=== PATIENT | female | born 1985 | race Two or more races ===

== ENCOUNTER → 2021-10-14 08:48 | Outpatient (REF) | payer MEDICAID, SELFPAY | LOC: HO.SL 08:48 | PROVIDERS: PCP Nurse Practitioner Primary Care; Visit Provider Nurse Practitioner Primary Care | DX: R06.83 Snoring (principal); R40.0 Somnolence; R53.83 Other fatigue | CPT/HCPCS: 95806 ==

== ENCOUNTER 2023-03-04 12:18 | Outpatient (REF) | payer MEDICAID, SELFPAY ==
[2023-03-05 04:15] LABS: HIV AB/AG Nonreactive (Nonreactive); HIV Num 1 0.05 S/CO (0.00-0.99); ~HepC Num1 0.31 S/CO (0.00-0.79); ~Hepatitis C Antibody Nonreactive (Nonreactive)
[2023-03-05 18:49] LABS: C. trachomatis RNA TMA NOT DETECTED (NOT DETECTED); N. gonorrhoeae RNA TMA NOT DETECTED (NOT DETECTED)
[2023-03-08 08:59] LABS: RPR Rapid Plasma Reagin NON-REACTIVE (NON-REACTIVE)
[2023-03-08 14:58] LABS: N. gonorrhoeae RNA TMA, Throat NOT DETECTED
== END 2023-03-04 12:19 | disposition home or self-care (01) ==
LOC: HO.HHCL 12:18
PROVIDERS: Visit Provider Nurse Practitioner Primary Care
DX: Z11.3 Encounter for screening for infections with a predominantly sexual mode of transmission (principal); Z11.4 Encounter for screening for human immunodeficiency virus [HIV]
CPT/HCPCS: 36415; 81513; 86592; 86803; 87389; 87491; 87591

== ENCOUNTER 2023-05-02 11:42 | Outpatient (REF) | payer MEDICAID, SELFPAY ==
[2023-05-02 13:38] LABS: Hematocrit 40.2 % (37.0-47.0); Hemoglobin 13.1 g/dl (12.0-16.0); Mean Corpuscular HGB Conc 32.6 g/dl (31.0-35.0); Mean Corpuscular Hemoglobin 27.3 pg (27.0-33.0); Mean Corpuscular Volume 83.9 fL (80.0-98.0); Platelet Count 284 X10*3/uL (160-400); Red Blood Count 4.79 X10*6/uL (4.20-5.50); Red Cell Distribution Width 13.6 % (11.0-16.0); White Blood Count 5.4 X10*3/uL (4.8-10.8)
[2023-05-02 13:57] LABS: Estimated Average Glucose 120 mg/dL; Hemoglobin A1c % 5.8 % (<6.0)
[2023-05-02 14:21] LABS: Alanine Aminotransferase 22 U/L (0-31); Albumin Level 4.3 g/dL (3.5-5.0); Alkaline Phosphatase 86 U/L (39-117); Anion Gap 12 (12-20); Aspartate Amino Transferase 19 U/L (5-31); Bilirubin Direct 0.1 mg/dL (0.0-0.5); Bilirubin Total 0.4 mg/dL (0.0-1.0); Blood Urea Nitrogen 7 mg/dL (9-16); Calcium 9.2 mg/dL (8.4-10.2); Carbon Dioxide 24 mmol/L (22-29); Chloride 105 mmol/L (96-108); Cholesterol 252 mg/dL (<200); Estimated Glomerular Filt Rate > 60; Free T4 (Free Thyroxine) 0.95 ng/dL (0.71-1.85); Glucose Random 93 mg/dL (60-115); HDL Cholesterol 43 mg/dL (>40); LDL Cholesterol Calculated 188 mg/dL (<100); Potassium 3.9 mmol/L (3.3-5.1); Sodium 137 mmol/L (135-145); Thyroid Stimulating Hormone 0.85 uIU/mL (0.32-4.0); Total Protein 7.5 g/dL (6.5-8.0); Triglycerides 107 mg/dL (<150); Vitamin D 25-OH Total 17.9 ng/mL (>30)
== END 2023-05-02 11:43 | disposition home or self-care (01) ==
LOC: HO.HHCL 11:42
PROVIDERS: Visit Provider Family Medicine
DX: R53.83 Other fatigue (principal)
CPT/HCPCS: 36415; 80048; 80061; 80076; 82306; 83036; 84439; 84443; 85027

== ENCOUNTER 2023-05-05 13:38 | Outpatient (REF) | payer MEDICAID, SELFPAY ==
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
== END 2023-05-05 13:39 | disposition home or self-care (01) ==
LOC: HO.CT 13:38
PROVIDERS: PCP Nurse Practitioner Primary Care; Visit Provider Family Medicine
DX: R51.9 Headache, unspecified (principal)
CPT/HCPCS: 70450

== ENCOUNTER → 2023-06-07 13:30 | Outpatient (REF) | payer MEDICAID, SELFPAY | LOC: HO.SL 13:30 | PROVIDERS: PCP Family Medicine; Visit Provider Family Medicine | DX: G47.33 Obstructive sleep apnea (adult) (pediatric) (principal) | CPT/HCPCS: 95806 ==

== ENCOUNTER → 2023-06-07 19:00 | Outpatient (BNV) | payer MEDICAID, SELFPAY | PROVIDERS: PCP Family Medicine; Visit Provider Internal Medicine | DX: G47.33 Obstructive sleep apnea (adult) (pediatric) (principal) | CPT/HCPCS: 95806 ==

== ENCOUNTER 2024-09-24 10:30 | Outpatient (REF) | payer MEDICAID, SELFPAY ==
--- OUTSIDE RECORDS SUMMARY | 2024-09-24 16:27 | XMS_ITS | Clinical Summary ---
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 Family History Medical History Relation Name Comments COPD Father Esophagitis Father Ulcerative colitis Father No Known Problems Mother Relation Name Status Comments Father Alive Mother Alive Social History Tobacco Use Types Packs/Day Years Used Date Smoking Tobacco: Former Cigarettes 1 10 Passive Smoke Exposure: Past Smokeless Tobacco: Never Tobacco Cessation:Counseling Given: Not Answered Alcohol Use Standard Drinks/Week Comments Not Currently 0 (1 standard drink = 0.6 oz pur e alcohol) Comments No Sex and Gender Information Value Date Recorded Sex Assigned at Female 01/10/2023 8:45 AM EST Legal Sex Female 10:24 AM EDT Gender Identity Female 01/10/2023 8:45 AM EST Sexual Orientation Straight 01/10/2023 8: 45 AM EST Last Filed Vital Signs Vital Sign Reading Time Taken Comments Blood Pressure 118/77 01/17/2023 1:11 PM EST Pulse 83 01/17/2023 1:11 PM EST Temperature 36.6 C (97.8 F) 01/17/2023 1:11 PM EST Respiratory Rate 16 11/25/2022 7:53 AM EDT Oxygen Saturation 95% 12/17/2022 11:53 AM EDT Inhaled Oxygen Concentration - - Weight 90.7 kg (200 lb) 12/17/2022 11:53 AM EDT Height 157.5 cm (5' 2 ) 01/17/2023 1:11 PM EST Body Mass Index 36.58 12/17/2022 11:53 AM EDT Plan of Treatment Health Maintenance Due Date Last Done Comments Cervical Cancer Screening 1987 HPV and Pap Smear 1987 Pap Smear 1987 Varicella Vaccines (1 of 2 - 13+ 2-dose series) 09/11/2000 Hepatitis B Vaccines (1 of 3 - 19+ 3-dose series) 09/11/2006 COVID-19 Vaccine (1 - 2023-2 5 season) 2023 Alcohol/Substance Use Screening 02/15/2024 Influenza Vaccine (#1) 2024 , 12/28/2019, 04/20/2019 DTaP,Tdap,and Td Vaccines (4 - Td or Tdap) 04/16/2030 04/16/2020, 12/09/2018, 03/29/2007 RSV Vaccine (60+ years old and patients) (1 - 1-dose 75+ series) 09/11/2062 Pneumococcal Vaccine: Pediatric (0-5 Years) and At-Risk Patients (6-50 Years) Aged Out 04/20/2019 No longer eligible based on patient's age to complete this topic HIV Screening Completed 09/22/[address] [facility]ENDING [facility] Advance Directives * Full Code (Latest Code Status on File) Date Activated Date Inactivated Comments 11/24/2022 10:37 AM 11/25/2022 12:26 PM Care Teams Manager Documentation Relationship Specialty Start Date End Date Natasha Vences [address] [place] [id number] PCP - General 05/20/21
--- OUTSIDE RECORDS SUMMARY | 2024-09-24 16:27 | XMS_ITS | Encounter Summary ---
Author Organization [employer] Address [address] [facility] 7 [place] [address] Care Team Providers Care Union Carpenter Name Role Phone Natasha Vences Primary Care Provider [phone] Reason for Visit * Reason Onset Date Comments PT1 11/17/2022 Encounter Details Date Type Department Care Team ([facility] Contact Info) Description 11/17/2022 Telephone [facility] MEDICINE [address] [place] [address] Natasha Vences ANP [address] [place] [address] PT1 Social History Tobacco Use Types Packs/Day Years Used Date Smoking Tobacco: Never Assessed Comments Unknown Sex and Gender Information Value Date Recorded Sex Assigned at Female 12/14/2021 10:39 AM EDT Legal Sex Female 10:39 AM EDT Gender Identity Female 12/14/2021 10:39 AM EDT Sexual Orientation Choose not to disclose 2021 10:39 AM EDT documented as of this encounter Miscellaneous Notes * Telephone Encounter - Doris Rincon - 11/18/2022 8:13 AM EDT PT-1 Request Number [id number] is Pending * Telephone Encounter - Giana Do - 11/17/2022 9:28 AM EDT TC from pt requesting a PT1 Location:[address] [place] [address] Specialty:[facility] Date&Time: 11/24/22 between 6-7 am Vp Lab: N/A Pt does informs will be staying over night and will need a ride the next day back home . Pt would like a call back to clarify . documented in this encounter Plan of Treatment Not on file documented as of this encounter Visit Diagnoses Not on filedocumented in this encounter Care Teams Union Carpenter Relationship Specialty Start Date End Date Natasha Vences ANP [address] [place] [id number] PCP - General Family Medicine 11/17/20 documented as of this encounter
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
[2024-09-25 09:28] LABS: Bacterial Vaginosis PCR POSITIVE (Negative); Candida Group PCR NOT DETECTED (Not Detect); Candida glab krusei PCR NOT DETECTED (Not Detect); Trichomonas vaginalis PCR NOT DETECTED (Not Detect)
[2024-09-25 10:00] LABS: CT PCR NOT DETECTED (Not Detect.); NG PCR NOT DETECTED (Not Detect.)
== END 2024-09-24 10:31 | disposition home or self-care (01) ==
LOC: HO.LNP 10:30
PROVIDERS: Visit Provider Internal Medicine Geriatric Medicine
DX: Z11.8 Encounter for screening for other infectious and parasitic diseases (principal); Z11.3 Encounter for screening for infections with a predominantly sexual mode of transmission; R30.0 Dysuria; N89.8 Other specified noninflammatory disorders of vagina; Z11.2 Encounter for screening for other bacterial diseases
CPT/HCPCS: 81515; 87086; 87491; 87591

== ENCOUNTER 2024-09-25 09:26 | Outpatient (REF) | payer MEDICAID, SELFPAY ==
--- OUTSIDE RECORDS SUMMARY | 2024-09-25 10:04 | XMS_ITS | Encounter Summary ---
Author Organization [employer] Address [address] [facility] [address] [place] [address] Care Team Providers Care Bit Bender Name Role Phone Natasha Vences Primary Care Provider [phone] Reason for Visit * Reason Onset Date Comments PT1 11/17/2022 Encounter Details Date Type Department Care Team ([facility] Contact Info) Description 11/17/2022 Telephone [facility] MED[facility]INE [address] [place] [address] Natasha Vences ANP [address] [place] [address] PT1 Social History Tobacco Use Types Packs/Day [...] 11/18/2022 8:13 AM EDT PT-1 Request Number [id number] is Pending * Telephone Encounter - Giana Do - 11/17/2022 9:28 AM EDT TC from pt requesting a PT1 Location:[address] [place] [address] Specialty:[facility] Date&Time: 11/24/22 between 6-7 am Web Analytics Developer: N/A Pt does informs will be staying over night and will need a ride the next day back home . Pt would like a call back to clarify . documented in this encounter Plan of Treatment Not on file documented as of this encounter Visit Diagnoses Not on filedocumented in this encounter Care Teams Bit Bender Relationship Specialty Start Date End Date Natasha Vences ANP [address] [place] [id number] PCP - General Family Medicine 11/17/20 documented as of this encounter
--- OUTSIDE RECORDS SUMMARY | 2024-09-25 10:04 | XMS_ITS | Clinical Summary ---
Author Organization [facility] Address [address] [place] [address] Care Team Providers Care Hospital Intern Name Role Phone Natasha Vences Primary Care [...] this topic HIV Screening Completed 09/22/2021 Insurance [facility] PENDING [facility] Advance Directives * Full Code (Latest Code Status on File) Date Activated Date Inactivated Comments 11/24/2022 10:37 AM 11/25/2022 12:26 PM Care Teams Hospital Intern Relationship Specialty Start Date End Date Natasha Vencse [address] [place] [id number] PCP - General 05/20/21
--- OUTSIDE RECORDS SUMMARY | 2024-09-25 10:04 | XMS_ITS | Clinical Summary ---
Author Organization [facility] it Address [address] [place] [address] Care Team Providers Care Distribution Technician Name Role Phone Jo Ann Victor MD Primary Care Provider [phone] Surgical History Surgery Date Site/Laterality Comments SECTION PROCEDURE: [place] DELIVERY ONLY OTHER SURGICAL HISTORY 2006 PROCEDURE: [place] COLPOSCOPY CERVIX UPPER/ADJACENT VAGINA COLONOSCOPY April 2014 [...] RESULTING AGENCY - 2019 4:06 PM EDT [id number] THINPREP PAP, IMAGED: NEGATIVE FOR SQUAMOUS INTRAEPITHELIAL LESION AND MALIGNANCY . ALINA IXE(ASCP) (CASE ELECTRONICALLY SIGNED 09 12 2019) RESULT [...] Recently Relevant to Health Maintenance Care Teams Distribution Technician Relationship Specialty Start Date End Date Jo Ann Victor MD [address] [place] [address] PCP - General Internal Medicine 10/03/20
[2024-09-26 03:49] LABS: Syphilis Screen Nonreactive (Nonreactive)
[2024-09-26 04:15] LABS: HIV Num 1 0.04 S/CO (0.00-0.99); ~HepC Num1 0.32 S/CO (0.00-0.79); ~Hepatitis C Antibody Nonreactive (Nonreactive)
== END 2024-09-25 09:27 | disposition home or self-care (01) ==
LOC: HO.HHCL 09:26
PROVIDERS: PCP Nurse Practitioner Primary Care; Visit Provider Internal Medicine Geriatric Medicine
DX: Z11.3 Encounter for screening for infections with a predominantly sexual mode of transmission (principal); Z11.4 Encounter for screening for human immunodeficiency virus [HIV]; Z11.59 Encounter for screening for other viral diseases
CPT/HCPCS: 36415; 86780; 86803; 87389